=== PATIENT | male | born 1960 | race Caucasian/White ===

== ENCOUNTER 2024-03-23 13:48 | Emergency (ER) | payer BC ==
[~2024-03-23] VITALS: Ht 165.1 cm; Wt 64.0 kg
[~2024-03-23 13:48] MED LIST: HYDR-3917 PO; MOTRIN; OMEP-393 PO
[2024-03-23 14:47] VITALS: BP_SYST 139; PULSE 91; RESP 18; TEMP 97.5; O2SAT 98
[2024-03-23] MEDS ORDERED: IBUP-1969 PO (16:38)
[2024-03-23] MEDS ORDERED: HYDR-3927 PO (16:38)
[2024-03-23 16:50] VITALS: BP_SYST 139; PULSE 91; RESP 18; TEMP 97.5; O2SAT 98
== END 2024-03-23 16:50 | disposition home or self-care (01) ==
LOC: SED 13:48
DX: S43.491A Other sprain of right shoulder joint, initial encounter (principal); Z79.899 Other long term (current) drug therapy; W22.8XXA Striking against or struck by other objects, initial encounter; Y93.53 Activity, golf; Y92.89 Other specified places as the place of occurrence of the external cause; Y99.8 Other external cause status
CPT/HCPCS: 73030; 99283